=== PATIENT | female | born 1995 ===

== ENCOUNTER 2022-11-08 09:56 | Outpatient (CLI) | payer OTHER | END 2022-11-08 11:45 | disposition home or self-care (01) | LOC: PRENATAL 09:56 | PROVIDERS: ATTEND Obstetrics & Gynecology Maternal & Fetal Medicine | DX: O36.80X0 Pregnancy with inconclusive fetal viability, not applicable or unspecified (principal); O34.219 Maternal care for unspecified type scar from previous cesarean delivery; Z3A.12 12 weeks gestation of pregnancy ==

== ENCOUNTER 2022-12-30 07:55 | Outpatient (CLI) | payer OTHER | END 2022-12-30 16:35 | disposition home or self-care (01) | LOC: PRENATAL 07:55 | PROVIDERS: ATTEND Obstetrics & Gynecology Maternal & Fetal Medicine | DX: O35.9XX0 Maternal care for (suspected) fetal abnormality and damage, unspecified, not applicable or unspecified (principal); O35.3XX0 Maternal care for (suspected) damage to fetus from viral disease in mother, not applicable or unspecified; Z3A.20 20 weeks gestation of pregnancy ==

== ENCOUNTER 2023-02-28 11:15 | Outpatient (CLI) | payer OTHER | END 2023-02-28 12:36 | disposition home or self-care (01) | LOC: PRENATAL 11:15 | PROVIDERS: ATTEND Obstetrics & Gynecology Maternal & Fetal Medicine | DX: O26.849 Uterine size-date discrepancy, unspecified trimester (principal); O35.9XX0 Maternal care for (suspected) fetal abnormality and damage, unspecified, not applicable or unspecified; O36.8199 Decreased fetal movements, unspecified trimester, other fetus; O24.419 Gestational diabetes mellitus in pregnancy, unspecified control; Z3A.28 28 weeks gestation of pregnancy ==

== ENCOUNTER 2023-03-25 09:39 | Outpatient (CLI) | payer OTHER ==
[~2023-03-25 09:39] MED LIST: ALCOHOL PADS1 EACH TOP; HUMULIN N100 UNIT/2 SUBCUTANEO; INSULIN SYRING1 EA29 SUBCUTANEO
== END 2023-03-25 10:47 | disposition home or self-care (01) ==
LOC: PRENATAL 09:39
PROVIDERS: ATTEND Obstetrics & Gynecology Maternal & Fetal Medicine
DX: O26.849 Uterine size-date discrepancy, unspecified trimester (principal); O35.3XX0 Maternal care for (suspected) damage to fetus from viral disease in mother, not applicable or unspecified; O36.8199 Decreased fetal movements, unspecified trimester, other fetus; O24.419 Gestational diabetes mellitus in pregnancy, unspecified control; Z3A.32 32 weeks gestation of pregnancy

== ENCOUNTER 2023-04-25 09:44 | Outpatient (CLI) | payer OTHER | END 2023-04-25 16:57 | disposition home or self-care (01) | LOC: PRENATAL 09:44 | PROVIDERS: ATTEND Obstetrics & Gynecology Maternal & Fetal Medicine | DX: O26.849 Uterine size-date discrepancy, unspecified trimester (principal); O35.3XX0 Maternal care for (suspected) damage to fetus from viral disease in mother, not applicable or unspecified; O36.8199 Decreased fetal movements, unspecified trimester, other fetus; O24.419 Gestational diabetes mellitus in pregnancy, unspecified control; Z3A.36 36 weeks gestation of pregnancy ==